=== PATIENT | female | born 1970 | race Caucasian/White ===

== ENCOUNTER 2017-06-30 10:28 | Inpatient (IN) | payer OTHER ==
[2017-06-30 11:19] LABS: #Basophils 0.1 thou/uL (0.0-0.2); #Monocytes 0.3 thou/uL (0.11-0.59); #Neutrophils 3.6 thou/uL (1.40-6.50); %Basophils 1.1 % (0.0-1.0); %Eosinophils 0.2 % (0.0-10.0); %Lymphocytes 19.5 % (21.0-51.0); %Monocytes 6.4 % (0.0-10.0); %Neutrophils 72.8 % (42.0-75.0); Hemoglobin 13.7 g/dL (12.0-16.0); Mean Corpuscular HGB CONC 32.6 g/dL (32.0-36.0); Mean Corpuscular Hemoglobin 27.6 pg (27.0-31.0); Mean Corpuscular Volume 84.7 fl (81.0-99.0); Mean Platelet Volume 7.2 fL (7.4-10.4); Platelet Count 217 thou/uL (130-400); RBC Distribution Width 12.3 % (11.5-14.5); Red Blood Cell (RBC) Count 4.96 mill/uL (4.20-5.40); White Blood Cell (WBC) Count 4.9 thou/uL (4.8-10.8)
[2017-06-30 11:30] LABS: ALT (SGPT) 69 U/L (8-55); AST (SGOT) 59 U/L (5-34); Albumin 3.7 g/dL (3.5-5.0); Alkaline Phosphatase 58 U/L (40-150); Anion Gap 14 mmol/L (10-20); BUN (Urea Nitrogen) 11 mg/dL (7.0-18.7); Bilirubin, Total 0.4 mg/dL (0.2-1.2); CK (CPK) 111 U/L (29-168); Calc. Creatinine Clearance 0 mL/min (70-130); Calcium 8.8 mg/dL (7.8-10.44); Carbon Dioxide 25 mmol/L (22-29); Chloride 103 mmol/L (98-107); Estimated GFR-MDRD Greater than 90; Globulin 3.5 g/dL (2.4-3.5); Glucose 141 mg/dL (70-105); Potassium 3.8 mmol/L (3.5-5.1); Protein, Total 7.2 g/dL (6.0-8.3); Sodium 138 mmol/L (136-145)
--- NOTE | 2017-06-30 11:32 | RAD ---
PA AND LATERAL CHEST: HISTORY: Shortness of breath. FINDINGS: Heart size is upper limits of normal. Mediastinal structures are unremarkable. There are slightly i ncreased perihilar lung markings and more confluent parenchymal changes in the left mid lung field. These appear to be predominantly lingular. These are more suggestive of an infiltrative process. IMPRESSION: Borderline heart size. Slightly increased perihilar markings with more confluent pneumonic-appearing process in the left mid lung field more suggestive of an infiltrate than pulmonary edema. POS: [facility]
[2017-06-30 11:33] LABS: CKMB 0.6 ng/mL (0-6.6); Troponin I Less than 0.010 ng/mL (< 0.028)
[2017-06-30] MEDS ORDERED: methylPREDNISolone Sod Succ/PF 125 MG/2 ML VIAL ONE (12:26)
[2017-06-30] MEDS ORDERED: Water For Inject, Bacteriostat 30 ML ONE (12:26)
[2017-06-30 15:22] VITALS: BMI 43.2
[2017-06-30] MEDS ORDERED: Mag-Al 1200 mg/1200 mg/30 ML UDCUP PO PRN (18:23)
[2017-06-30] MEDS ORDERED: Milk Of Magnesia 30 ML UDCUP PO PRN (18:23)
[2017-06-30] MEDS ORDERED: Acetaminophen 325 MG TAB PO PRN (18:23)
[2017-06-30] MEDS ORDERED: cefTRIAXone\\ROCEPHIN 1 GM in Sodium Chloride 0.9% 100 ML IVPB SCH (18:30)
[2017-06-30] MEDS: Azithromycin 500 MG in Sodium Chloride 0.9% 250 ML 250 ML IVPB SCH (20:25)
[2017-06-30] MEDS: cefTRIAXone\\ROCEPHIN 1 GM, Syringe 0.4 ML in Sterile Water 9.6 ML SLOW IVP SCH (20:25)
[2017-06-30] MEDS: Melatonin 3 MG TAB PO SCH (20:36)
[2017-06-30] MEDS: Famotidine 20 MG TAB PO SCH (20:37)
[2017-06-30] MEDS: Escitalopram Oxalate 20 mg Tablet PO SCH (20:37)
--- NOTE | 2017-06-30 20:57 | ULT ---
BILATERAL LOWER EXTREMITY VENOUS DOPPLER ULTRASOUND: Date: 06-30-17 Comparison: None. History: Elevated D-Dimer, assess for DVT. Technique: Multiplanar grayscale sonographic imaging of the venous structures of bilateral lower extr emities obtained with color flow and spectral analysis. FINDINGS: Bilateral common femoral veins, greater saphenous veins, profunda femoral veins, femoral veins, popli teal veins, and posterior tibial veins are parent. Normal blood flow, augmentation and compression no olivia within the deep venous system bilaterally. No evidence for DVT on either side. IMPRESSION: No evidence for deep venous thrombosis of either lower extremity. POS: [facility]
--- NOTE | 2017-07-01 00:03 | HP ---
PRIMARY CARE PHYSICIAN: The patient currently does not have a primary care physician. CHIEF COMPLAINT: Cough and shortness of breath. HISTORY OF PRESENT ILLNESS: Ms. Rene is a pleasant 46-year-old female that presented to the [facility] room after she says she was sick since Friday. She said that she has been coughing up yellow p hlegm. She also has been having subjective fever and chills; however, she did not take her temperatu re, but has been taking some Tylenol off and on. She says her symptoms got progressively worse and t hen on Friday, she was getting lethargic and could barely get off the couch and then she says this mo rning, she got to take a shower and while she was in the shower, she felt like she was going to pass out. She was afraid that she would fall onto the floor in the shower and so she quickly got out of t he shower and fell onto the bed. This is when she told her that she needs to seek medical at [facility]. She says that [facility] and they noticed that her oxygen level was low and this is one day apparently suggested that she go to the [facility]. The re, she was evaluated and She had a chest x-ray done which had findings which were consistent with so me increased perihilar markings which were confluent and in the mid left lung field which was suggest marcia of an infiltrate. She also had a D-dimer which was slightly elevated and for this reason, they w anted to pursue a CT angio of her chest. However, they had a difficult time finding an IV site large enough to accommodate the test and she was sent over to our facility in order to get a ventilation p erfusion scan. The patient has had a ventilation perfusion scan when I saw her and it was intermedia te probability. REVIEW OF SYSTEMS: Constitutional: There have been subjective fever and chills. No night sweats, n o weight loss. However, she has had decrease in appetite. HEENT: She has had no headache or dizzin ess. Throat: There has been no sore throat, rhinorrhea, neck pain or adenopathy. Pulmonary: As th e history of present illness. She has had the productive cough, no hemoptysis. Cardiovascular: She did have some complaints of chest pain in the center of her chest like somebody was sitting on it, b ut it did get worse with cough and there was no radiation to the chest pain and she did feel a little bit more short of breath. She has also been having some wheezing as well. Gastrointestinal: No na usea, no vomiting, no change in bowels. Genitourinary: No urinary frequency, hematuria, no hesitanc y. Neurologic: No focal weakness, numbness, no seizures. Psychiatric: No symptoms of anxiety or d epression. Skin and Integument: No skin changes. No rash. PAST MEDICAL HISTORY: Significant for an ovarian cyst and oophorectomy, history of endometriosis and the oophorectomy is on the right. She also has a history of asthma and this includes the past surgi jean carlos history. ALLERGIES: SULFA and LATEX GLOVES. MEDICATIONS: Escitalopram 5 mg daily and albuterol as needed. FAMILY HISTORY: Significant for diabetes mellitus in her father and also coronary artery disease in her uncles. SOCIAL HISTORY: She is . She has 5 adopted children. She has never smoked, but she worked i [employer] in which she had 15 years of secondhand smoke. She denies any alcohol use. PHYSICAL EXAMINATION: GENERAL: She is alert and oriented. She appears to be in no acute distress. VITAL SIGNS: Blood pressure was 136/76, heart rate is 69, respiratory rate is 16, temperature is 98. 1. HEENT: Pupils are equal, round, and reactive. Extraocular muscles are intact. Sclerae are anicteri c. Throat: There is no erythema, no exudates. NECK: No adenopathy, no bruits. LUNGS: She has got bilateral wheezing fairly tight on both lung phan as well as some rales at the bases. CARDIOVASCULAR: She has a normal S1, S2. I do not appreciate an S3 or S4. No murmurs, clicks or ru bs. ABDOMEN: Obese, it is soft, it is nontender, nondistended. Positive for bowel sounds. There is no rebound or guarding. EXTREMITIES: There is no edema. NEUROLOGICALLY: The exam is nonfocal. LABORATORY RESULTS: Sodium 138, potassium 3.8, chloride is 103, CO2 is 25, BUN of 11, creatinine 0.6 8, glucose is 141. Troponin less than 0.010. White blood cell count 4.9, hemoglobin 13.7, hematocri t is 42, platelet count is 217. She had a D-dimer of 0.57. ASSESSMENT AND PLAN: This is a 46-year-old female that presents to the emergency room with acute res piratory failure with hypoxemia, likely as a result of community-acquired pneumonia. There was some concern by the ER physician for possible pulmonary embolism and a CT angio was ordered, but unable to be completed and a VQ scan was done instead with intermediate probability. For the plan with regard s to the community-acquired pneumonia, we will place her on Rocephin and Zithromax as well as supplem ental oxygen. She appears to have significant reactive airway disease and we will place her on DuoNe bs as well and likely give her a dose of steroids too. Possible pulmonary embolism: I think this diagnosis is less likely. She has an alternate reason for chest pain and shortness of breath as well as chest x-ray findings to match. In that, she has some findings of pneumonia on chest x-ray. She has not been on any long vacations or long trips. There i s no history of recent or active cancer. She is not on any hormone therapy or both control pil ls and she is not a smoker. Therefore, I think the risk is relatively low. If we are not able to ob tain an adequate size IV then in lieu of this, we will get lower extremity venous Dopplers and if the se are negative, then we will presume that there is no pulmonary embolism.
[2017-07-01 05:49] LABS: #Monocytes 0.2 thou/uL (0.11-0.59); #Neutrophils 2.7 thou/uL (1.40-6.50); %Basophils 0.3 % (0.0-1.0); %Eosinophils 0.1 % (0.0-10.0); %Lymphocytes 26.1 % (21.0-51.0); %Monocytes 5.7 % (0.0-10.0); %Neutrophils 67.8 % (42.0-75.0); Mean Corpuscular HGB CONC 32.7 g/dL (32.0-36.0); Mean Corpuscular Hemoglobin 28.7 pg (27.0-31.0); Mean Corpuscular Volume 87.7 fl (81.0-99.0); Mean Platelet Volume 7.4 fL (7.4-10.4); Platelet Count 221 thou/uL (130-400); RBC Distribution Width 12.2 % (11.5-14.5)
[2017-07-01 06:16] LABS: Anion Gap 13 mmol/L (10-20); BUN (Urea Nitrogen) 12 mg/dL (7.0-18.7); Calc. Creatinine Clearance 181 mL/min (70-130); Calcium 9.1 mg/dL (7.8-10.44); Carbon Dioxide 25 mmol/L (22-29); Chloride 103 mmol/L (98-107); Estimated GFR-MDRD Greater than 90; Glucose 196 mg/dL (70-105); Potassium 3.8 mmol/L (3.5-5.1); Sodium 137 mmol/L (136-145)
--- NOTE | 2017-07-01 07:43 | NM ---
VQ SCAN: Indication: Chest pain. Comparison: Radiograph dated 06-30-17. Radiopharmaceutical: 9 mCi Xenon 133 inhaled and 6.10 mCi Technetium 99MAA, IV. FINDINGS: There is a predominately match ventilatory and perfusion abnormalities involving both lower lobes, le ft greater than right, with corresponding opacities seen on the chest radiograph dated 06-30-17 at 2:5 6 a.m. This is consistent with triple match defect with the defects involving the left lung being mod erate in size. There is subsegmental triple match defect involving the superior segment of the right lower lobe. IMPRESSION: Intermediate probability for PE. There is a moderate sized region of match ventilatory, perfusion and radiographic abnormalities within the left lower lobe. There is a mild to moderate sized subsegmenta l triple match defect involving the superior segment of the right lower lobe. Findings were called to Cristina Peoples RN caring for this patient, at 4:46 p.m. on 06-30-17. POS: [facility]
[2017-07-01] MEDS: Famotidine 20 MG TAB PO SCH ×2 (08:50→20:11)
[2017-07-01] MEDS ORDERED: FLU VACC QS2017-18 36 mo. & older 0.5 ML SYRINGE IM ONE (09:00)
[2017-07-01] MEDS ORDERED: Furosemide 40 MG/4 ML VIAL SLOW IVP SCH (11:15)
--- NOTE | 2017-07-01 12:24 | PDOC.PN ---
- Subjective Encounter Start Date: 07/01/17 Encounter Start Time: 12:22 Ms. Rene had an episode of wheezing and increased shortness of breath this morning. Her nurse increased her supplemental oxygen to 3L. She is feeling a little better now. She also had a coughing spell, and coughed up some yellow, rust colored sputum. - Objective Resuscitation Status: Resuscitation Status FULL:Full Resuscitation MAR Reviewed: Yes Vital Signs & Weight: Vital Signs (12 hours) Temp Pulse Resp BP Pulse Ox 07/01/17 08:41 98.6 F 85 12 126/65 07/01/17 08:00 98.6 F 85 12 90 L 07/01/17 06:51 60 16 94 L 07/01/17 05:58 98.5 F 61 18 132/63 92 L 07/01/17 01:31 98.9 F 82 18 115/65 92 L 07/01/17 00:30 91 12 Weight Admit Weight 244 lb Weight 244 lb I&O: 06/30/17 07/01/17 07/02/17 06:59 06:59 06:59 Intake Total 1650 Balance 1650 Result Diagrams: 07/01/17 04:58 07/01/17 04:58 Phys Exam - Physical Examination HEENT: PERRLA Respiratory: wheezing present + scattered wheezing, + rales in both lung phan Cardiovascular: RRR, no significant murmur, no rub Gastrointestinal: soft, non-tender, positive bowel sounds Musculoskeletal: no edema Dx/Plan (1) Pneumonia, community acquired Code(s): J18.9 - PNEUMONIA, UNSPECIFIED ORGANISM Status: Acute (2) Acute respiratory failure with hypoxia Code(s): J96.01 - ACUTE RESPIRATORY FAILURE WITH HYPOXIA Status: Acute - Plan * Pneumonia with Hypoxemia- Will continue Rocephin and Azithromycin * She had quite a bit of reactive airway disease- will add steroids, and continue Duonebs * Will check an Echo to assess her EF * She is clinically improved now, but should she have another episode, may consider Pulmonary Evaluation.
[2017-07-01] MEDS: Benzonatate 100 MG CAP PO PRN (16:12)
[2017-07-01] MEDS: Azithromycin 500 MG in Sodium Chloride 0.9% 250 ML 250 ML IVPB SCH (20:10)
[2017-07-01] MEDS: cefTRIAXone\\ROCEPHIN 1 GM, Syringe 0.4 ML in Sterile Water 9.6 ML SLOW IVP SCH (20:10)
[2017-07-01] MEDS: Escitalopram Oxalate 20 mg Tablet PO SCH (20:11)
[2017-07-01] MEDS: Melatonin 3 MG TAB PO SCH (20:12)
[2017-07-01] MEDS: guaiFENesin ER 600 MG TAB PO SCH (20:12)
[2017-07-02] MEDS: Famotidine 20 MG TAB PO SCH ×2 (08:09→20:24)
[2017-07-02] MEDS: guaiFENesin ER 600 MG TAB PO SCH ×2 (08:09→20:25)
[2017-07-02] MEDS ORDERED: ISOVUE-370 76%-LOCM 1 ML ONE (11:38)
--- NOTE | 2017-07-02 11:38 | CT ---
CT PULMONARY ANGIOGRAM WITH IV CONTRAST AND 3D POSTPROCESSING: History Difficulty breathing, pneumonia. FINDINGS: Opacification of the pulmonary arterial vasculature is suboptimal. No filling defects are seen in th e main pulmonary arteries. Peripheral embolism cannot be excluded on this study. The thoracic aorta demonstrates no evidence of aneurysm or dissection. No pleural or pericardial effusions are seen. There are patchy infiltrates in the lung phan bilaterally. No cavitation is seen. There are degen erative changes in the spine. Upper abdominal tomograms demonstrate fatty infiltration of the liver. IMPRESSION: 1. No evidence of central pulmonary embolism. 2. Bilateral pneumonia. POS: [facility]
--- NOTE | 2017-07-02 16:22 | PDOC.PN ---
- Subjective Encounter Start Date: 07/02/17 Encounter Start Time: 16:21 Subjective: feels a little better .still SOB w ambulation.no portable O2 in room -: no chest pain/cough - Objective Resuscitation Status: Resuscitation Status FULL:Full Resuscitation MAR Reviewed: Yes Vital Signs & Weight: Vital Signs (12 hours) Temp Pulse Resp BP Pulse Ox 07/02/17 12:00 98.1 F 68 16 139/78 93 L 07/02/17 08:00 97.8 F 76 16 144/69 H 93 L 07/02/17 06:57 71 14 07/02/17 05:15 97.9 F 62 18 130/76 92 L Weight Admit Weight 244 lb Weight 244 lb I&O: 07/01/17 07/02/17 07/03/17 06:59 06:59 06:59 Intake Total 1650 500 Balance 1650 500 Result Diagrams: 07/01/17 04:58 07/01/17 04:58 Additional Labs: Microbiology 07/01/17 15:50 Sputum Respiratory Culture - Preliminary 06/30/17 11:56 Venous blood - Right Arm Blood Culture - Preliminary Specimen has been received and culture in progress. No Growth to date. 06/30/17 11:56 Venous blood - Left Arm Blood Culture - Preliminary Specimen has been received and culture in progress. No Growth to date. Radiology Reviewed by me: Yes (CTA-no PE) Phys Exam - Physical Examination Constitutional: NAD HEENT: PERRLA, moist MMs, sclera anicteric, TM's clear, oral pharynx no lesions , 2+ tonsils Neck: no nodes, no JVD, supple, full ROM Respiratory: no wheezing, clear to auscultation bilateral loud rhonchi b/l Cardiovascular: RRR, no significant murmur Gastrointestinal: soft, non-tender, no distention, positive bowel sounds Musculoskeletal: no edema, pulses present Neurological: non-focal, normal sensation, moves all 4 limbs Psychiatric: normal affect, A&O x 3 Skin: no rash Dx/Plan (1) Pneumonia, community acquired Code(s): J18.9 - PNEUMONIA, UNSPECIFIED ORGANISM Status: Acute (2) Reactive airway disease Code(s): J45.909 - UNSPECIFIED ASTHMA, UNCOMPLICATED Status: Acute (3) Acute respiratory failure with hypoxia Code(s): J96.01 - ACUTE RESPIRATORY FAILURE WITH HYPOXIA Status: Acute (4) Obesity Code(s): E66.9 - OBESITY, UNSPECIFIED Status: Chronic Qualifiers: Obesity type: due to excess calories Obesity classification: adult class 3 (BMI >= 40) Body mass index: BMI 40.0-44.9 - Plan continue antibiotics, respiratory therapy, out of bed/ambulate, DVT proph w/SCDs cont empiric ABx,nebs,steroids.No PE on CTA -: add Azelastine nasla spray and Dulera -: if no improvement by tomorrow,will consult PCCM -: clinically stable.provide portable O2 in room -: am labs * . Review of Systems - Review of Systems Constitutional: weakness, malaise. negative: fever, chills, sweats, other ENT: negative: Ear Pain, Ear Discharge, Nose Pain, Nose Discharge, Nose Congestion, Mouth Pain, Mouth Swelling, Throat Pain, Throat Swelling, Other Respiratory: SOB with Excertion. negative: Cough, Dry, Shortness of Breath, Hemoptysis, Pleuritic Pain, Sputum, Wheezing Cardiovascular: negative: chest pain, palpitations, orthopnea, paroxysmal nocturnal dyspnea, edema, light headedness, other Gastrointestinal: negative: Nausea, Vomiting, Abdominal Pain, Diarrhea, Constipation, Melena, Hematochezia, Other Genitourinary: negative: Dysuria, Frequency, Incontinence, Hematuria, Retention , Other Musculoskeletal: negative: Neck Pain, Shoulder Pain, Arm Pain, Back Pain, Hand Pain, Leg Pain, Foot Pain, Other Neurological: negative: Weakness, Numbness, Incoordination, Change in Speech, Confusion, Seizures, Other - Medications/Allergies Allergies/Adverse Reactions: Allergies Allergy/AdvReac Type Severity Reaction Status Date / Time latex Allergy Mild Verified 06/30/17 15:23 Sulfa (Sulfonamide Allergy Hives Verified 06/30/17 15:23 Antibiotics) Medications: Current Medications Acetaminophen (Tylenol) 650 mg PO Q4H PRN PRN Reason: Headache/Fever or Pain Last Admin: 07/01/17 08:51 Dose: 650 mg Al Hydroxide/Mg Hydroxide (Maalox) 30 ml PO Q6H PRN PRN Reason: Heartburn or Indigestion Albuterol/Ipratropium (Duoneb) 3 ml NEB [id number] PRN PRN Reason: SOB &/or Wheezing Albuterol/Ipratropium (Duoneb) 3 ml NEB [id number] [facility] Last Admin: 07/02/17 15:37 Dose: Not Given Azelastine HCl (Azelastine) 30 ml NS DAILY [facility] Benzonatate (Tessalon) 100 mg PO Q4H PRN PRN Reason: Cough Last Admin: 07/01/17 16:12 Dose: 100 mg Escitalopram Oxalate (Lexapro) 20 mg PO [facility] Last Admin: 07/01/17 20:11 Dose: 20 mg Famotidine (Pepcid) 20 mg PO BID [facility] Last Admin: 07/02/17 08:09 Dose: 20 mg Guaifenesin (Mucinex) 600 mg PO Q12HR [facility] Last Admin: 07/02/17 08:09 Dose: 600 mg Azithromycin 500 mg/ Sodium (Chloride) 250 mls @ 250 mls/hr IVPB Q24HR [facility] Last Admin: 07/01/17 20:10 Dose: 250 mls Ceftriaxone Sodium 1 gm/ (Syringe 0.4 ml/ Sterile Water) 10 mls @ 120 mls/hr SLOW IVP 2000 [facility] Last Admin: 07/01/17 20:10 Dose: 10 mls Magnesium Hydroxide (Milk Of Magnesium) 30 ml PO DAILYPRN PRN PRN Reason: Constipation Melatonin (Melatonin) 4.5 mg PO [facility] Last Admin: 07/01/17 20:12 Dose: 4.5 mg Methylprednisolone Sodium Succinate (Solu-Medrol) 40 mg IVP Q8HR [facility] Last Admin: 07/02/17 14:28 Dose: 40 mg Mometasone Furoate/Formoterol Fumar (Dulera 200 Mcg/5 Mcg Inhaler) 1 puff INH BID-RT [facility]
[2017-07-02] MEDS ORDERED: Azelastine 137 MCG/Spray 30 ML NS SCH (16:30)
[2017-07-02] MEDS: Mometasone/Formoterol 120 PUFF INHALER INH SCH (18:13)
[2017-07-02] MEDS: Azithromycin 500 MG in Sodium Chloride 0.9% 250 ML 250 ML IVPB SCH (20:21)
[2017-07-02] MEDS: cefTRIAXone\\ROCEPHIN 1 GM, Syringe 0.4 ML in Sterile Water 9.6 ML SLOW IVP SCH (20:22)
[2017-07-02] MEDS: Escitalopram Oxalate 20 mg Tablet PO SCH (20:24)
[2017-07-02] MEDS: Melatonin 3 MG TAB PO SCH (20:25)
[2017-07-02] MEDS: Benzonatate 100 MG CAP PO PRN (21:45)
[2017-07-03 05:49] LABS: #Lymphocytes 1.4 thou/uL (1.20-3.40); #Monocytes 0.7 thou/uL (0.11-0.59); #Neutrophils 7.7 thou/uL (1.40-6.50); %Basophils 0.2 % (0.0-1.0); %Eosinophils 0.3 % (0.0-10.0); %Lymphocytes 13.8 % (21.0-51.0); %Monocytes 6.9 % (0.0-10.0); %Neutrophils 78.8 % (42.0-75.0); Hemoglobin 12.5 g/dL (12.0-16.0); Mean Corpuscular HGB CONC 32.9 g/dL (32.0-36.0); Mean Corpuscular Hemoglobin 28.9 pg (27.0-31.0); Mean Corpuscular Volume 87.9 fl (81.0-99.0); Mean Platelet Volume 7.7 fL (7.4-10.4); Platelet Count 227 thou/uL (130-400); RBC Distribution Width 12.2 % (11.5-14.5); Red Blood Cell (RBC) Count 4.33 mill/uL (4.20-5.40); White Blood Cell (WBC) Count 9.8 thou/uL (4.8-10.8)
[2017-07-03 06:02] LABS: Anion Gap 10 mmol/L (10-20); BUN (Urea Nitrogen) 18 mg/dL (7.0-18.7); Calc. Creatinine Clearance 198 mL/min (70-130); Calcium 8.9 mg/dL (7.8-10.44); Carbon Dioxide 30 mmol/L (22-29); Chloride 103 mmol/L (98-107); Estimated GFR-MDRD Greater than 90; Glucose 211 mg/dL (70-105); Potassium 4.1 mmol/L (3.5-5.1); Sodium 139 mmol/L (136-145)
[2017-07-03] MEDS: Mometasone/Formoterol 120 PUFF INHALER INH SCH ×2 (07:52→18:51)
[2017-07-03] MEDS ORDERED: Azelastine 137 MCG/Spray 30 ML NS SCH (09:00)
[2017-07-03] MEDS: guaiFENesin ER 600 MG TAB PO SCH ×2 (09:02→21:46)
[2017-07-03] MEDS: Famotidine 20 MG TAB PO SCH ×2 (09:02→21:46)
[2017-07-03] MEDS: cefTRIAXone\\ROCEPHIN 1 GM, Syringe 0.4 ML in Sterile Water 9.6 ML SLOW IVP SCH (21:45)
[2017-07-03] MEDS: Azithromycin 500 MG in Sodium Chloride 0.9% 250 ML 250 ML IVPB SCH (21:45)
[2017-07-03] MEDS: Melatonin 3 MG TAB PO SCH (21:46)
[2017-07-03] MEDS: Escitalopram Oxalate 20 mg Tablet PO SCH (21:46)
[2017-07-04] MEDS: Mometasone/Formoterol 120 PUFF INHALER INH SCH ×2 (07:54→19:00)
[2017-07-04] MEDS: Famotidine 20 MG TAB PO SCH ×2 (07:55→20:00)
[2017-07-04] MEDS: guaiFENesin ER 600 MG TAB PO SCH ×2 (07:56→20:00)
[2017-07-04] MEDS ORDERED: Furosemide 20 MG/2 ML VIAL SLOW IVP SCH (11:15)
--- NOTE | 2017-07-04 11:15 | PDOC.PN ---
- Subjective Encounter Start Date: 07/04/17 Encounter Start Time: 11:14 Subjective: feels a little better.less cough.breathing improved but still GUZMÁN - Objective Resuscitation Status: Resuscitation Status FULL:Full Resuscitation MAR Reviewed: Yes Vital Signs & Weight: Vital Signs (12 hours) Temp Pulse Resp BP Pulse Ox 07/04/17 08:00 98.8 F 56 L 20 95 07/04/17 07:52 56 L 20 99 07/04/17 07:24 97.9 F 62 18 151/78 H 97 07/04/17 02:56 94 L 07/04/17 00:24 97.6 F 67 24 H 168/96 H 99 Weight Admit Weight 244 lb Weight 244 lb I&O: 07/03/17 07/04/17 07/05/17 06:59 06:59 06:59 Intake Total 1700 1310 240 Balance 1700 1310 240 Result Diagrams: 07/03/17 05:21 07/03/17 05:21 Additional Labs: Microbiology 07/01/17 15:50 Sputum Respiratory Culture - Final 06/30/17 11:56 Venous blood - Right Arm Blood Culture - Preliminary NO GROWTH AT 48 HOURS 06/30/17 11:56 Venous blood - Left Arm Blood Culture - Preliminary NO GROWTH AT 48 HOURS Phys Exam - Physical Examination Constitutional: NAD HEENT: PERRLA, moist MMs, sclera anicteric, TM's clear, oral pharynx no lesions , 2+ tonsils Neck: no nodes, no JVD, supple, full ROM Respiratory: no wheezing, no rhonchi, clear to auscultation bilateral few rales Cardiovascular: RRR, no significant murmur Gastrointestinal: soft, non-tender, no distention, positive bowel sounds Musculoskeletal: no edema, pulses present Neurological: non-focal, normal sensation, moves all 4 limbs Psychiatric: normal affect, A&O x 3 Skin: no rash Dx/Plan (1) Pneumonia, community acquired Code(s): J18.9 - PNEUMONIA, UNSPECIFIED ORGANISM Status: Acute (2) Reactive airway disease Code(s): J45.909 - UNSPECIFIED ASTHMA, UNCOMPLICATED Status: Acute (3) Acute respiratory failure with hypoxia Code(s): J96.01 - ACUTE RESPIRATORY FAILURE WITH HYPOXIA Status: Resolved (4) Obesity Code(s): E66.9 - OBESITY, UNSPECIFIED Status: Chronic Qualifiers: Obesity type: due to excess calories Obesity classification: adult class 3 (BMI >= 40) Body mass index: BMI 40.0-44.9 - Plan continue antibiotics, respiratory therapy, incentive spirometry, DVT proph w/ SCDs give 1 dose lasix.wean off O2 -: cont IV ABx w nebs,dulera,nasal spray.wean down solumedrol -: likley home in next 24 hrs. * . Review of Systems - Review of Systems Constitutional: negative: fever, chills, sweats, weakness, malaise, other Respiratory: Cough, SOB with Excertion. negative: Dry, Shortness of Breath, Hemoptysis, Pleuritic Pain, Sputum, Wheezing Cardiovascular: negative: chest pain, palpitations, orthopnea, paroxysmal nocturnal dyspnea, edema, light headedness, other Gastrointestinal: negative: Nausea, Vomiting, Abdominal Pain, Diarrhea, Constipation, Melena, Hematochezia, Other Genitourinary: negative: Dysuria, Frequency, Incontinence, Hematuria, Retention , Other Musculoskeletal: negative: Neck Pain, Shoulder Pain, Arm Pain, Back Pain, Hand Pain, Leg Pain, Foot Pain, Other Skin: negative: Rash, Lesions, Rolando, Bruising, Other Neurological: negative: Weakness, Numbness, Incoordination, Change in Speech, Confusion, Seizures, Other - Medications/Allergies Allergies/Adverse Reactions: Allergies Allergy/AdvReac Type Severity Reaction Status Date / Time latex Allergy Mild Verified 06/30/17 15:23 Sulfa (Sulfonamide Allergy Hives Verified 06/30/17 15:23 Antibiotics) Medications: Current Medications Acetaminophen (Tylenol) 650 mg PO Q4H PRN PRN Reason: Headache/Fever or Pain Last Admin: 07/01/17 08:51 Dose: 650 mg Al Hydroxide/Mg Hydroxide (Maalox) 30 ml PO Q6H PRN PRN Reason: Heartburn or Indigestion Albuterol/Ipratropium (Duoneb) 3 ml NEB [id number] PRN PRN Reason: SOB &/or Wheezing Albuterol/Ipratropium (Duoneb) 3 ml NEB [id number] ERIC Last Admin: 07/04/17 07:52 Dose: 3 ml Benzonatate (Tessalon) 100 mg PO Q4H PRN PRN Reason: Cough Last Admin: 07/02/17 21:45 Dose: 100 mg Escitalopram Oxalate (Lexapro) 20 mg PO HS [facility] Last Admin: 07/03/17 21:46 Dose: 20 mg Famotidine (Pepcid) 20 mg PO BID [facility] Last Admin: 07/04/17 07:55 Dose: 20 mg Furosemide (Lasix) 20 mg SLOW IVP NOW [facility] Stop: 07/04/17 16:00 Guaifenesin (Mucinex) 600 mg PO Q12HR [facility] Last Admin: 07/04/17 07:56 Dose: 600 mg Azithromycin 500 mg/ Sodium (Chloride) 250 mls @ 250 mls/hr IVPB Q24HR [facility] Last Admin: 07/03/17 21:45 Dose: 250 mls Ceftriaxone Sodium 1 gm/ (Syringe 0.4 ml/ Sterile Water) 10 mls @ 120 mls/hr SLOW IVP 2000 [facility] Last Admin: 07/03/17 21:45 Dose: 10 mls Magnesium Hydroxide (Milk Of Magnesium) 30 ml PO DAILYPRN PRN PRN Reason: Constipation Melatonin (Melatonin) 4.5 mg PO [facility] Last Admin: 07/03/17 21:46 Dose: 4.5 mg Methylprednisolone Sodium Succinate (Solu-Medrol) 40 mg IVP Q12HR [facility] Last Admin: 07/04/17 09:26 Dose: 40 mg Mometasone Furoate/Formoterol Fumar (Dulera 200 Mcg/5 Mcg Inhaler) 1 puff INH BID-RT [facility] Last Admin: 07/04/17 07:54 Dose: 1 puff Sodium Chloride (Flush - Normal Saline) 10 ml IVF Q12HR [facility] Sodium Chloride (Flush - Normal Saline) 10 ml IVF PRN PRN PRN Reason: Saline Flush
[2017-07-04] MEDS: Benzonatate 100 MG CAP PO PRN (19:57)
[2017-07-04] MEDS: Escitalopram Oxalate 20 mg Tablet PO SCH (20:00)
[2017-07-04] MEDS: Azithromycin 500 MG in Sodium Chloride 0.9% 250 ML 250 ML IVPB SCH (20:00)
[2017-07-04] MEDS: cefTRIAXone\\ROCEPHIN 1 GM, Syringe 0.4 ML in Sterile Water 9.6 ML SLOW IVP SCH (20:00)
[2017-07-04] MEDS: Melatonin 3 MG TAB PO SCH (23:35)
[2017-07-05] MEDS: Mometasone/Formoterol 120 PUFF INHALER INH SCH (06:37)
[2017-07-05] MEDS: Famotidine 20 MG TAB PO SCH (08:49)
[2017-07-05] MEDS: guaiFENesin ER 600 MG TAB PO SCH (08:49)
[2017-07-05 13:10] VITALS: BP 165/84; TEMP 98.4
--- NOTE | 2017-07-05 13:42 | RAD ---
PORTABLE CHEST 1 VIEW: Date: 07/05/17 Time: 1200 hours HISTORY: Edema, effusion, pneumonia. FINDINGS: Comparison made with exam of 06/30/17. FINDINGS: The heart size is normal. No lobar consolidation, pneumothorax, pneumothoraces, or pleural effusions are seen. IMPRESSION: No acute process. POS: [facility]
--- NOTE | 2017-07-05 17:29 | DIS ---
DATE OF ADMISSION: 06/30/2017 DATE OF DISCHARGE: 07/05/2017 CONDITION AT THE TIME OF DISCHARGE: Stable and improved. DISCHARGE DIAGNOSES: 1. Bilateral community-acquired pneumonia. 2. Reactive airway disease. 3. Acute hypoxic respiratory failure, resolved. 4. Moderate obesity. PRIMARY CARE PHYSICIAN: None. The patient is instructed to set up PCP after discharge. DISCHARGE MEDICATIONS: Melatonin 5 mg at bedtime, Lexapro 20 mg daily, Medrol Dosepak, Florastor 250 mg daily, Tamiflu at a prophylactic dose of 75 mg p.o. daily for 7 days as the patient's entire [facility] ehold including both of her kids are sick with influenza, nebulizers as needed, and Omnicef 300 mg p. o. b.i.d. for 5 more days. CONSULTATIONS: None. PROCEDURES DONE IN THE HOSPITAL: Include, 1. Transthoracic echocardiogram, which shows EF of 60%-65%, mild right ventricular enlargement and r ight atrial enlargement, otherwise unremarkable. 2. V/Q scan which is intermediate probability for pulmonary embolism. 3. CT angiogram, which is negative for any PE, but showed bilateral pneumonia. 4. Lower extremity Doppler ultrasound, which is negative for any DVT bilaterally. HISTORY OF PRESENT ILLNESS: Ms. Rene is a very pleasant 46-year-old female with past medical his tory of endometriosis and asthma who presented to the emergency room with the complaints of cough and shortness of breath. She was found to have some perihilar increased markings on the chest x-ray and elevated D-dimer. She underwent a nuclear medicine ventilation perfusion scan in the ER because she did not have IV access at that time per CT angio. There was intermediate probability for same. She was admitted with a presumptive diagnosis of community-acquired pneumonia and rule out PE. Please s admission history and physical for further details. She was also started on steroids given her hi story of asthma and also nebulizers. HOSPITAL COURSE: The patient had slow improvement in her symptoms. She mentioned in the lower extre mity ultrasound and CT angio which did not show any pulmonary embolism or DVT. She did have bilatera l pneumonia and was treated with IV antibiotics. Eventually, she was weaned off of oxygen and slowly she came back to her baseline. Her blood cultures remained negative. Her sputum cultures sent by [facility] physician showed normal respiratory golden. On the day of discharge, she is back to her baseline. Her oxygen saturation is 93%-94% on room air. She is eager to go home. Chest x-ray was checked again to rule out any pleural effusion, no pulmona ry edema and is negative for the same. She is instructed to make appointment with the PCP. Because of family and her kids are sick with influenza, she is being started on prophylactic dose of Tamiflu to prevent worsening of her respiratory status as the patient had a rather slow improvement requiring multiple hospitalizations. PHYSICAL EXAMINATION: She was seen and examined prior to discharge. The physical exam included: VITAL SIGNS: Temperature 98.4, pulse of 60, respirations 16, saturating 93% on room air, blood press ure 155/84. GENERAL: No acute distress, awake, alert, oriented x3. CHEST: Clear to auscultation without any wheezing, rales or rhonchi. Rhythm is regular without any murmur, rubs or gallops. ABDOMEN: Soft, nontender, nondistended, positive bowel sounds. EXTREMITIES: Free of any cyanosis, clubbing or edema. NEUROLOGIC: Nonfocal. Discharge plan was discussed with the patient and her who verbalized understanding.
== END 2017-07-05 15:48 | disposition home or self-care (01) | DRG 193 ==
LOC: SCSER 10:28 → OBSVTOIN 11:43 → INTOOBSV 11:43 → T4-B 11:43
PROVIDERS: ADMIT Internal Medicine; ATTEND Internal Medicine
DX: J18.9 Pneumonia, unspecified organism (principal); J96.01 Acute respiratory failure with hypoxia; Z68.41 Body mass index [BMI] 40.0-44.9, adult; J45.909 Unspecified asthma, uncomplicated; E66.9 Obesity, unspecified
CPT/HCPCS: 36415; 71045; 71046; 71275; 78582; 80048; 80053; 82550; 82553; 84484; 85025; 85379; 87040; 87070; 87205; 93005; 93306; 93970; 94640; 94664; 96365; 96375; A4216; A9540; A9558; J0456; J0696; J1940; J1956; J2920; J2930; J7050; J7620